=== PATIENT | male | born 2000 | race Caucasian/White ===

== ENCOUNTER 2024-10-07 13:56 | Emergency (ER) | payer SELFPAY ==
[~2024-10-07] VITALS: Ht 185.4 cm; Wt 93.0 kg
[2024-10-07] MEDS ORDERED: SEPTDS PO (14:23)
== END 2024-10-07 14:30 | disposition home or self-care (01) ==
LOC: ED 13:56
DX: Q18.1 Preauricular sinus and cyst (principal); L08.9 Local infection of the skin and subcutaneous tissue, unspecified; H92.01 Otalgia, right ear; Z88.0 Allergy status to penicillin

== ENCOUNTER 2024-12-12 10:11 | Emergency (ER) | payer SELFPAY ==
[~2024-12-12] VITALS: Ht 185.4 cm; Wt 96.2 kg
[~2024-12-12 10:11] MED LIST: SEPTDS PO
[2024-12-12] MEDS ORDERED: SEPTDS PO (10:34)
== END 2024-12-12 10:45 | disposition home or self-care (01) ==
LOC: ED 10:11
DX: H60.00 Abscess of external ear, unspecified ear (principal); Z88.0 Allergy status to penicillin; Z79.2 Long term (current) use of antibiotics